=== PATIENT | male | born 1955 | race Caucasian/White ===

== ENCOUNTER 2016-11-22 23:52 | Emergency (ER) | payer SELFPAY ==
[~2016-11-22] VITALS: Ht 188 cm; Wt 144.0 kg
[~2016-11-22 23:52] MED LIST: IBUP-1542 PO
[2016-11-23 00:08] VITALS: Ht 188 cm; Wt 144.0 kg
== END 2016-11-23 02:07 | disposition left against medical advice (07) ==
LOC: E/R 23:52
DX: Z53.21 Procedure and treatment not carried out due to patient leaving prior to being seen by health care provider (principal)